=== PATIENT | female | born 1980 | race Caucasian/White ===

== ENCOUNTER 2017-01-30 06:20 | Outpatient (CLI) | payer OTHER ==
[2017-01-30] MEDS ORDERED: LACTATED RINGERS 500 ML IV ONE (06:36)
[2017-01-30 06:55] VITALS: BP 101/60
[2017-01-30 07:12] LABS: Bacteria,Urine 2+ /HPF (Negative); Bilirubin,Urine NEG (Negative); Blood,Urine NEG (Negative); Ketones,Urine NEG (Negative); Leukocyte Esterase,Urine TR (Negative); Mucus,Urine FEW /HPF; Nitrite,Urine NEG (Negative); Protein,Urine <15 mg/dL mg/dL (Negative); Urobilinogen,Urine < 2.0 mg/dL (<2.0)
[2017-01-30] MEDS ORDERED: BRETHINE SUB-Q ONE (08:00)
== END 2017-01-30 08:40 | disposition home or self-care (01) ==
LOC: TRG 06:20
PROVIDERS: ATTEND Obstetrics & Gynecology
DX: O09.523 Supervision of elderly multigravida, third trimester (principal); O47.03 False labor before 37 completed weeks of gestation, third trimester; Z3A.36 36 weeks gestation of pregnancy
CPT/HCPCS: 81001; 96360; J7120; J3105

== ENCOUNTER 2017-02-10 19:40 | Outpatient (CLI) | payer OTHER ==
[2017-02-10 20:03] VITALS: BP 104/68
[2017-02-10] MEDS ORDERED: LACTATED RINGERS 1,000 ML IV SCH (20:29)
[2017-02-10] MEDS ORDERED: LACTATED RINGERS 1,000 ML ONE (20:29)
[2017-02-10] MEDS ORDERED: LACTATED RINGERS 1,000 ML IV ONE (20:52)
[2017-02-10] MEDS ORDERED: BRETHINE SUB-Q SCH (21:00)
[2017-02-12] MEDS ORDERED: PITOCin/NS 20 UNIT/1000ML DRIP 20,000 MILLIUNITS/1,000 ML BAG IV ONE (14:16)
== END 2017-02-10 23:10 | disposition home or self-care (01) ==
LOC: TRG 19:40 → LD 19:56 → TRG 23:10 → APU 02-11 20:12
PROVIDERS: ATTEND Obstetrics & Gynecology
DX: O09.523 Supervision of elderly multigravida, third trimester (principal); O47.1 False labor at or after 37 completed weeks of gestation; Z3A.38 38 weeks gestation of pregnancy
CPT/HCPCS: 59025; 96360; 96361; J7120; J2590; J3105